=== PATIENT | female | born 1960 | race Caucasian/White ===

== ENCOUNTER 2019-01-07 10:46 | Emergency (ER) | payer BC ==
[~2019-01-07] VITALS: Ht 154.9 cm; Wt 87.5 kg
[~2019-01-07 10:46] MED LIST: LEVOTHYROXINE50 MCG PO
[2019-01-07] MEDS ORDERED: ATORVASTATIN CA20 MG PO (10:56)
[2019-01-07] MEDS ORDERED: NORCO 5-325 TA1 EACH PO (13:49)
== END 2019-01-07 14:00 | disposition home or self-care (01) ==
LOC: ED 10:46
DX: S42.212A Unspecified displaced fracture of surgical neck of left humerus, initial encounter for closed fracture (principal); E78.5 Hyperlipidemia, unspecified; F17.200 Nicotine dependence, unspecified, uncomplicated; Z79.899 Other long term (current) drug therapy; W01.198A Fall on same level from slipping, tripping and stumbling with subsequent striking against other object, initial encounter
CPT/HCPCS: 73060; 99283

== ENCOUNTER 2024-11-14 06:55 | Day surgery (SDC) | payer BC ==
[2024-11-13 13:47] VITALS: BP 140/89
[~2024-11-14] VITALS: Ht 154.9 cm; Wt 97.7 kg
[~2024-11-14 06:55] MED LIST changes: +ATORVASTATIN CA20 MG PO; +DEXAMETHASONE SOD PHOS 4 MG/ML VIAL ONE; +FAMOTIDINE 20 MG/ 2 ML VIAL ONE; +KETOROLAC TROMETHAMINE 30 MG/ML VIAL ONE; +LACTATED RINGER'S 1,000 ML IV ONE; +LACTATED RINGER'S 1,000 ML IV SCH; +LIDOCAINE 1% W/ EPI 1:100,000 20 ML MDV ONE; +METOCLOPRAMIDE HCL 10 MG/2 ML SDV ONE; +MIDAZOLAM HCL 2 MG/2 ML VIAL ONE; +NORCO 5-325 TA1 EACH PO; +fentaNYL citrate 100 MCG/2 ML VIAL ONE; +ondansetron HCL 4 MG/2 ML VIAL ONE; +propofoL 200 MG/20 ML VIAL ONE
[2024-11-14] MEDS ORDERED: IBLOOD GLUCOSE TEST STRIP 1 EA TEST VI PRN ×2 (07:00→09:00)
[2024-11-14] MEDS ORDERED: LIDOCAINE HCL 1% 5 ML SDV INJ ONE (07:00)
[2024-11-14] MEDS ORDERED: CEFAZOLIN SODIUM 2 GM/20 ML SYR IV SCH (07:00)
[2024-11-14 07:26] VITALS: BP 129/71
[2024-11-14] MEDS ORDERED: OXYMETAZOLINE HCL 30 ML BTL NAS SCH (07:30)
[2024-11-14] MEDS ORDERED: LEVOFLOXACIN500 MG PO (07:30)
[2024-11-14] MEDS ORDERED: ADVIL200 M1 PO (07:30)
[2024-11-14] MEDS ORDERED: BENADRYL25 MG PO (07:31)
[2024-11-14 07:35] LABS: BUN/CREATININE RATIO 18.91 (6.0-28.6); CALCIUM 9.1 mg/dL (8.5-10.1); CREATININE, SERUM 0.74 mg/dL (0.55-1.02)
[2024-11-14] MEDS ORDERED: DEXAMETHASONE SOD PHOS 4 MG/ML VIAL ONE (08:17)
[2024-11-14] MEDS ORDERED: ePHEDrine sulfate 50 MG/ML AMP ONE (08:34)
[2024-11-14] MEDS ORDERED: fentaNYL citrate 50 MCG/ML SDV IV PRN (09:00)
[2024-11-14] MEDS ORDERED: NALOXONE HCL 0.4 MG SYR IV PRN (09:00)
[2024-11-14] MEDS ORDERED: ondansetron HCL 4 MG/2 ML VIAL IV PRN (09:00)
[2024-11-14] MEDS ORDERED: METOCLOPRAMIDE HCL 10 MG/2 ML SDV IV PRN (09:00)
[2024-11-14] MEDS ORDERED: PROCHLORPERAZINE EDISYLATE 10 MG/2 ML VIAL IV PRN (09:00)
[2024-11-14] MEDS ORDERED: MORPHINE SULFATE 10 MG/ML VIAL IV PRN (09:00)
--- NOTE | 2024-11-14 09:03 | NUR ---
11/14/24 0903 Sheets,Emily 0848 PT ARRIVED TO PACU ON 10L VIA MASK WITH ORAL AIRWAY IN PLACE. RESP EVEN AND UNLABORED. HOB INCREASED SLIGHTLY. VSS.
[2024-11-14 09:25] VITALS: BP 139/85
[2024-11-14] MEDS ORDERED: dexmedeTOMIDine HCl 200 MCG/2 ML VIAL ONE (09:25)
--- NOTE | 2024-11-14 09:51 | NUR ---
0914 PT ARRIVED TO DAY SURGERY ROOM 5 VIA STREACHER FROM PACU. PT IS SITTING UP IN SEMI FOWLERS, PT BREATHING EQUAL AND UNLABORED. PT REPORTS TOLERABLE 3/10 PAIN. PT REPORTS NO NAUSEA. PT SISTER AT BEDSIDE. REPORT TAKEN FROM SOCO Garza RN. PT HAS IV RUNNING LR CONTINUOUSLY THROUGH R WRIST. VITALS TAKEN. IV ASSESSED. PT HAS CALL LIGHT WITHIN REACH, PT HAS WATER AND PUDDING AT BEDSIDE.
[2024-11-14 10:24] VITALS: BP 131/75
--- NOTE | 2024-11-14 10:53 | NUR ---
1024 HOURLY ROUNDING DONE WITH PT. HOURLY VITALS TAKEN. IV ASSESSED. PT REPORTS NEEDING TO URINATE. 1029 PT ABLE TO AMBULATE TO THE BATHROOM AND VOID 100MLS OF CLEAR YELLOW URINE. 1035 IV REMOVED FOR DISCHARGE. PT GETTING DRESSED ON OWN. PT SISTER IN ROOM. 1043 DISCHARGE INFORMATION GONE OVER WITH PT AND SISTER, NO QUESTIONS AT THIS TIME. DRIP PAD APPLIED TO PT. 1045 PT DISCHARGED FROM DAY SURGERY VIA WHEELCHAIR TO THE FRONT OF THE HOSPITAL TO PT'S SISTER'S CAR. PT HAS PRESCRIPTION AND DISCHARGE PAPERWORK IN HAND.
--- NOTE | 2024-11-14 11:01 | OR ---
[facility] [address], [place] [address] Signed DATE OF OPERATION: 11/14/2024 SURGEON: Levi Delacruz MD PREOPERATIVE DIAGNOSIS: Chronic left pansinusitis. POSTOPERATIVE DIAGNOSIS: Chronic left pansinusitis. PROCEDURE: Left pansinusotomies. ANESTHESIA: General LMA; Ismael PERRY. PREOPERATIVE HISTORY: Tonja is a 64-year-old lady with several months of left-sided facial pain, sinusitis, unresponsive to appropriate medications. A CAT scan performed showed a left pansinus opacification consistent with chronic sinusitis, possibly polyposis. She was taken to the operating room for the above-mentioned procedures. OPERATIVE PROCEDURE AND FINDINGS: After informed consent, the patient was taken to the operating room, placed in supine position where general LMA anesthesia was induced. The patient and procedure were verified. Preop CT was viewed throughout. The patient received preoperative intranasal oxymetazoline intravenous Ancef, headlight speculum exam of the nasal cavity showed the right side clear. There was a septal spur inferiorly, partially obstructive, but no purulence or polyps. Left side was inspected. Middle meatus was congested, edematous with granular tissue, but no purulence in the middle turbinate was medialized with a speculum. The anterior ethmoid bulla was taken down with the Vee and polypoid material removed. The posterior ethmoid sinuses were opened, they appeared to be clear. Nasofrontal duct was opened also with a curved Vee. The middle meatal antrostomy was made with a curving curette and purulence was filling the maxillary sinus. Maxillary antrostomy was widened with Vee. Granular tissue was found in the maxillary sinus. This was all removed, sent to Pathology. The sinus was opened. Maxillary sinus was opened and the antrostomy widened. The minimal bleeding stopped afterwards. Packing was then placed. A Myers pack coated with Neosporin in the middle meatus and a trimmed Merocel pack in the nasal cavity. Pharynx was suctioned clear of blood secretions. The patient was then awakened, extubated, transported to recovery Electronically Signed By: LEVI DELACRUZ MD 11/14/24 1101 PATIENT NAME: TONJA PATEL OPERATIVE REPORT DATE OF : 60 REPORT #: [id number] PHYSICIAN: LEVI DELACRUZ MD PCP: RAFFAELE BERNARD PA-C REPORT IS CONFIDENTIAL AND NOT TO BE RELEASED WITHOUT AUTHORIZATION [facility] [address] [place] [id number] Signed room in good condition. No complications. BLOOD LOSS: Minimal. SPECIMEN: To pathology. DRAINS: None. PACKING: Two pieces of Merocel in left nostril. Levi Delacruz MD /MODL /[id number] Copies: ~ Electronically Signed By: LEVI DELACRUZ MD 11/14/24 1101 PATIENT NAME: TONJA PATEL OPERATIVE REPORT DATE OF : 60 REPORT #: [id number] PHYSICIAN: LEVI DELACRUZ MD PCP: RAFFAELE BERNARD PA-C REPORT IS CONFIDENTIAL AND NOT TO BE RELEASED WITHOUT AUTHORIZATION
--- NOTE | 2024-11-14 13:46 | EKG ---
[facility] [address] [facility] [place] [address] Signed Normal sinus rhythm Junctional ST depression, probably abnormal Abnormal ECG No previous ECGs available Confirmed by Romeo Stewart DO ([id number]) on 11/14/2024 1:46:24 PM Electronically Signed By: ROMEO STEWART DO 11/14/24 1346 PATIENT NAME: JAKE PATEL Electrocardiogram DATE OF : 60 PHYSICIAN: ROMEO STEWART DO REPORT #: [id number] REPORT IS CONFIDENTIAL AND NOT TO BE RELEASED WITHOUT AUTHORIZATION
[2024-11-14] MEDS ORDERED: SEVOFLURANE 250 ML BTL INH ONE (16:37)
--- NOTE | 2024-11-16 12:19 | PATH ---
[facility] [address] [facility] [place], [place] [address] Signed SPECIMEN(S): A LEFT SINUS CONTENTS SPECIMEN SOURCE: A. LEFT SINUS CONTENTS v CLINICAL HISTORY: Left pansinus opacification FINAL PATHOLOGIC DIAGNOSIS: Left sinus contents: - Sinonasal inflammatory polyps - Respiratory mucosa with marked chronic inflammation - Lymphoplasmycte to eosinophil ratio is approximately 10: 1 - Mild to moderate neutrophilic inflammation is present BRP MICROSCOPIC EXAMINATION: Histologic sections of all submitted blocks are examined by light microscopy. These findings, together with the gross examination, support the pathologic diagnosis. GROSS DESCRIPTION: The specimen, labeled and designated "Gary Patel, left sinus contents," is received in formalin and consists of a 2.1 x 1.8 x 0.8 cm aggregate of mak tissue fragments admixed with mak-white cartilage versus bone. The specimen is entirely submitted in cassette A1 following decal in decal stat. AA (under the direct supervision of a pathologist) The Gross Description was prepared using a voice recognition system. The report was reviewed for accuracy; however, sound-alike word errors, addition and/or deletions may occur. If there is any question about this report, please contact Client Services. ADDITIONAL NOTES: Immunohistochemical and/or in situ hybridization studies if performed in this case included appropriate positive controls that reacted as expected. This test was developed and its performance characteristics determined by [facility]. It has not been cleared or approved by the U.S. Food and Drug Administration. The FDA has determined that such clearance or approval is not PATIENT NAME: JAKE PATEL PATHOLOGY DATE OF : 60 REPORT #: [id number] PHYSICIAN: PALOMA SHAH PCP: RAFFAELE BERNARD PA-C REPORT IS CONFIDENTIAL AND NOT TO BE RELEASED WITHOUT AUTHORIZATION [address] [place], [place] [address] Signed necessary. This test is used for clinical purposes. It should not be regarded as investigational or for research. [facility] is certified under the Clinical Laboratory Improvement Amendments of 1988 (CLIA) as qualified to perform high complexity clinical laboratory testing. PERFORMING LABORATORY: Technical component was performed by [facility], [address] [place] [address] (CLIA# [id number]). Professional interpretation was performed by [email or web address], [address] [place] [address] (CLIA#: [id number]). Diagnostician: Reymundo Lofton MD Pathologist Electronically Signed 11/16/2024 Copies: ~ PATIENT NAME: JAKE PATEL PATHOLOGY DATE OF : 60 REPORT #: [id number] PHYSICIAN: PALOMA SHAH PCP: RAFFAELE BERNARD PA-C REPORT IS CONFIDENTIAL AND NOT TO BE RELEASED WITHOUT AUTHORIZATION
== END 2024-11-14 10:45 | disposition home or self-care (01) ==
LOC: DS 06:55
PROVIDERS: ATTEND Otolaryngology
PROC: 099R7ZZ Drainage of Left Maxillary Sinus, Via Natural or Artificial Opening (ICD-10-PCS; 2024-11-14)
PROC: 099 Ear, Nose, Sinus, Drainage (ICD-10-PCS; principal; 2024-11-14 08:30)
DX: J32.4 Chronic pansinusitis (principal); J33.8 Other polyp of sinus; E78.00 Pure hypercholesterolemia, unspecified; Z79.899 Other long term (current) drug therapy
CPT/HCPCS: 00160; 36415; 80048; 93005; 93010; J0690; J1100; J1885; J2250; J2405; J2704; J2765; J3010; J7121